=== PATIENT | male | born 1990 | race Caucasian/White ===

== ENCOUNTER 2020-03-15 10:27 | Emergency (ER) | payer SELFPAY ==
[2020-03-15 10:35] VITALS: BP 104/64
[2020-03-15] MEDS ORDERED: DEXAMETHASONE SOD PHOS INJ 10 MG/1 ML VIAL IM ONE (12:15)
--- NOTE | 2020-03-15 12:21 | ER Document Report ---
ED Skin Rash/Insect Bite/Abscs - General Chief Complaint: Rash Stated Complaint: RASH Time Seen by Provider: 03/15/20 12:14 Primary Care Provider: [facility] [Provider Group] - Follow up as needed Mode of Arrival: Ambulatory Notes: Patient is a 21-year-old male comes emergency room complaining of having a rash on his body. Patient states started proximally 1 week ago on his left lower ankle. He works with [employer] and [employer] and is outside constantly and knows he came in contact with an irritant such as poison racquel poison oak. Started there and is now spreading to the rest of his body his upper arms and extremities his neck. He has not had any on his face or eye area. He has been taking Benadryl for itch but has not gotten rid of the problem. He is here for steroid shot. TRAVEL OUTSIDE OF THE [place] IN LAST 30 DAYS: No - HPI Patient complains to provider of: Skin rash/lesion Onset: Last week Onset/Duration: Gradual Quality of pain: Achy, Burning Severity: Moderate Pain Level: 3 Skin Character: Erythema, Macules, Papules, Patchy, Swelling Skin Temperature: Warm Quality of rash: Itchy Identify cause: No Other exposure: Poison racquel, Poison oak Exacerbated by: Other - Scratching and heat Relieved by: Denies Similar symptoms previously: Yes Recently seen / treated by doctor: No - Related Data Allergies/Adverse Reactions: No Known Allergies Allergy (Unverified 03/15/20 12:00) Past Medical History - General Information source: Patient - Social History Smoking Status: Never Smoker Chew tobacco use (# tins/day): No Frequency of alcohol use: None Drug Abuse: None Lives with: Family Family History: Reviewed & Not Pertinent Patient has homicidal ideation: No Review of Systems - Review of Systems Constitutional: No symptoms reported EENT: No symptoms reported Cardiovascular: No symptoms reported Respiratory: No symptoms reported Gastrointestinal: No symptoms reported Genitourinary: No symptoms reported Male Genitourinary: No symptoms reported Musculoskeletal: No symptoms reported Skin: Rash Hematologic/Lymphatic: No symptoms reported Neurological/Psychological: No symptoms reported -: Yes All other systems reviewed and negative Physical Exam - Vital signs Vitals: Temp Pulse Resp BP Pulse Ox 98.5 F 71 16 104/64 98 03/15/20 10:33 03/15/20 10:33 03/15/20 10:33 03/15/20 10:33 03/15/20 10:33 Interpretation: Normal - Notes Notes: PHYSICAL EXAMINATION: GENERAL: Well-appearing, well-nourished and in no acute distress. HEAD: Atraumatic, normocephalic. EYES: Pupils equal round and reactive to light, extraocular movements intact, sclera anicteric, conjunctiva are normal. NECK: Normal range of motion, supple without lymphadenopathy LUNGS: Breath sounds clear to auscultation bilaterally and equal. No wheezes rales or rhonchi. HEART: Regular rate and rhythm without murmurs NEUROLOGICAL: Normal speech, normal gait. Normal sensory, motor exams PSYCH: Normal mood, normal affect. SKIN: Exam nation patient's her concern is primarily his left lower extremity at the ankle. There is moderate erythema with a patchy maculopapular rash that appears to be a poison oak presentation. Further investigation shows the same type of a presentation on the palmar side of bilateral arms and around his neck. S noted. Course - Vital Signs Vital signs: Temp Pulse Resp BP Pulse Ox 98.5 F 71 16 104/64 98 03/15/20 10:33 03/15/20 10:33 03/15/20 10:33 03/15/20 10:33 03/15/20 10:33 Discharge - Discharge Clinical Impression: Contact dermatitis Qualifiers: Contact dermatitis type: irritant Contact dermatitis trigger: non-food plants Qualified Code(s): L24.7 - Irritant contact dermatitis due to plants, except food Condition: Stable Disposition: HOME, SELF-CARE Instructions: Contact Dermatitis ([facility]) Additional Instructions: Continue to use oatmeal baths, you can also use Benadryl up to 50 mg every 6 hours for the itching. You can also get some Benadryl itch cream that may help. Take the steroid pack as directed and take at all please. Return to ER if you have any concerns or problems. Prescriptions: Prednisone 10 mg PO ASDIR PRN 6 Days #21 tab.ds.pk PRN Reason: Referrals: [facility] [Provider Group] - Follow up as needed
== END 2020-03-15 12:30 | disposition home or self-care (01) ==
LOC: ER 10:27
DX: L24.7 Irritant contact dermatitis due to plants, except food (principal); R21 Rash and other nonspecific skin eruption; M25.572 Pain in left ankle and joints of left foot
CPT/HCPCS: 99282; 96372; J1100

== ENCOUNTER 2020-08-22 12:41 | Emergency (ER) | payer OTHER ==
[2020-08-22] MEDS ORDERED: BENZONATATE 100 MG CAPSULE PO ONE (13:39)
--- NOTE | 2020-08-22 13:39 | ER Document Report ---
HPI - HPI Time Seen by Provider: 08/22/20 13:38 Notes: Otherwise healthy 29-year-old male presenting to the emergency department with chief complaint of persistent cough after having Covid. Patient reports he was diagnosed with Covid 14 days ago, he states that the health department told him he should not be contagious now. He reports he has persistent productive cough. He is concerned he may have pneumonia. He denies any fever, chills, nausea, vomiting or diarrhea. He is requesting a chest x-ray. - ROS Systems Reviewed and Negative: Yes All other systems reviewed and negative - EENT Notes: productive cough - RESPIRATORY Respiratory: REPORTS: Coughing - REPRODUCTIVE Reproductive: DENIES: : Past Medical History - General Information source: Patient - Social History Smoking Status: Never Smoker Frequency of alcohol use: None Drug Abuse: None Family History: Reviewed & Not Pertinent - Medical History Medical History: Negative Surgical Hx: Negative - Immunizations Immunizations up to date: Yes Vertical Provider Document - CONSTITUTIONAL Notes: PHYSICAL EXAMINATION: GENERAL: Well-appearing, well-nourished and in no acute distress. HEAD: Atraumatic, normocephalic. EYES: Pupils equal round extraocular movements intact, conjunctiva are normal. ENT: Nares patent NECK: Normal range of motion LUNGS: No respiratory distress, lung sounds clear and equal bilaterally. Musculoskeletal: Normal range of motion NEUROLOGICAL: Normal speech, normal gait. PSYCH: Normal mood, normal affect. SKIN: Warm, Dry, normal turgor, no rashes or lesions noted. - INFECTION CONTROL TRAVEL OUTSIDE OF THE [place] IN LAST 30 DAYS: No Course - Re-evaluation Re-evalutation: Chest x-ray negative for pneumonia. Patient will be started on Pepcid Tessalon Perles and prednisone. Patient agreeable to the plan. ED return precautions discussed, patient verbalized understanding and agreement with same. - Vital Signs Vital signs: Temp Pulse Resp BP Pulse Ox 97.9 F 74 22 H 94/54 L 100 08/22/20 12:50 08/22/20 12:50 08/22/20 12:50 08/22/20 12:50 08/22/20 12:50 - Laboratory Results Critical Laboratory Results Reviewed: No Critical Results - Radiology Results Critical Radiology Results Reviewed: No Critical Results Discharge - Discharge Clinical Impression: Cough, COVID-19, Shortness of breath Condition: Stable Disposition: HOME, SELF-CARE Additional Instructions: Your chest x-ray did not show any evidence of pneumonia. I am putting you on 2 different prescriptions one of them is prednisone which is a steroid, the other one is Tessalon Perles which is a prescription cough medicine. It has also been found that taking [id number] zinc and vitamin C may also be helpful with Covid. Please return if any new or worsening symptoms. Prescriptions: Benzonatate [Tessalon Perles 100 mg Capsule] 2 tab PO Q8HP PRN #30 capsule PRN Reason: Prednisone [Deltasone 20 mg Tablet] 3 tab PO DAILY 5 Days #15 tablet
--- NOTE | 2020-08-22 14:09 | RADIOLOGY REPORT (SQ) ---
EXAM DESCRIPTION: CHEST SINGLE VIEW IMAGES COMPLETED DATE/TIME: 08/22/2020 1:59 pm REASON FOR STUDY: cough/recent covid COMPARISON: None. EXAM PARAMETERS: NUMBER OF VIEWS: One view. TECHNIQUE: Single frontal radiographic view of the chest acquired. RADIATION DOSE: NA LIMITATIONS: None. FINDINGS: LUNGS AND PLEURA: No opacities, masses or pneumothorax. No pleural effusion. MEDIASTINUM AND HILAR STRUCTURES: No masses. Contour normal. HEART AND VASCULAR STRUCTURES: Heart normal in size. Normal vasculature. BONES: No acute findings. HARDWARE: None in the chest. OTHER: No other significant finding. IMPRESSION: NO ACUTE RADIOGRAPHIC FINDING IN THE CHEST. TECHNICAL DOCUMENTATION: JOB ID: [id number] 2010 [employer]- All Rights Reserved Reading location - IP/workstation name: [email or web address]
[2020-08-22 14:45] VITALS: BP 97/60
== END 2020-08-22 14:43 | disposition home or self-care (01) ==
LOC: ER 12:41
DX: U07.1 COVID-19 (principal); R05 Cough; R06.02 Shortness of breath
CPT/HCPCS: 71045; 99283